=== PATIENT | female | born 1970 | race Caucasian/White ===

== ENCOUNTER 2017-01-18 12:55 | Emergency (ER) | payer SELFPAY ==
[2017-01-18 14:29] VITALS: BP 120/73
--- NOTE | 2017-01-18 14:55 | UC ---
Hand/Wrist HPI - HPI Summary HPI Summary: 46 female presents with complaints left hand injury and pain after taking a seal to a bucket off when it slipped forcing her hand to fly back and hit the wall. Patient states this occurred while at work this morning and since has been causing her pain. Has not taken any medication besides her daily medication , prednisone that she takes for tendonitis. Patient denies numbness/tingling, limited ROM and any other injuries. Pain is described as throbbing and aching. Admits to ecchymosis and edema. No lacerations or open wounds. - History Of Current Complaint Chief Complaint: UCUpperExtremity Stated Complaint: LEFT HAND INJURY W/C Time Seen by Provider: 01/18/17 14:55 Hx Obtained From: Patient Hx Last Menstrual Period: 01/18/17 ?: No Onset/Duration: Sudden Onset, Lasting Hours, Worse Since Severity Initially: Mild Severity Currently: Moderate Pain Intensity: 3 Pain Scale Used: 0-10 Numeric Character Of Pain: Aching, Throbbing Aggravating Factor(s): Movement, Other - touching Alleviating: Rest Associated Signs And Symptoms: Positive: Swelling, Bruising Related History: Occupational Injury, Dominant Hand Right - Allergies/Home Medications Allergies/Adverse Reactions: Allergies Allergy/AdvReac Type Severity Reaction Status Date / Time No Known Allergies Allergy Verified 01/18/17 14:22 Home Medications: Home Medications Naproxen Sodium [Naproxen Sodium 220 mg] 220 mg PO BID PRN 01/18/17 [History Confirmed 01/18/17] predniSONE TAB* [Deltasone TAB*] 5 mg PO DAILY 01/18/17 [History Confirmed 01/18] PMH/Surg Hx/FS Hx/Imm Hx Endocrine History Of: Denies: Diabetes Cardiovascular History Of: Denies: Hypertension - Surgical History Surgical History: Yes Surgery Procedure, Year, and Place: tubal - Family History Known Family History: Positive: None - Social History Alcohol Use: Rare Substance Use Type: None Smoking Status (MU): Heavy Every Day Tobacco Smoker Type: Cigarettes Amount Used/How Often: 1/2 ppd Length of Time of Smoking/Using Tobacco: 25 yrs Have You Smoked in the Last Year: Yes - Immunization History Vaccination Up to Date: Yes Review of Systems Constitutional: Negative Skin: Bruising, Other - swelling ENT: Negative Respiratory: Negative Cardiovascular: Negative Gastrointestinal: Negative Motor: Negative Neurovascular: Negative Musculoskeletal: Arthralgia, Edema - left medial hand, Myalgia Neurological: Negative All Other Systems Reviewed And Are Negative: Yes Physical Exam Triage Information Reviewed: Yes Appearance: Well-Appearing - sitting reading magazine, No Pain Distress, Well- Nourished Vital Signs: Initial Vital Signs Temp 98.7 F 01/18/17 14:24 Pulse 60 01/18/17 14:24 Resp 16 01/18/17 14:24 BP 120/73 01/18/17 14:24 Pulse Ox 100 01/18/17 14:24 Vital Signs Reviewed: Yes Eyes: Positive: Conjunctiva Clear ENT: Positive: Normal ENT inspection, Hearing grossly normal Neck: Positive: Supple, Nontender Respiratory: Positive: Chest non-tender, Lungs clear, Normal breath sounds Cardiovascular: Positive: RRR, No Murmur, Pulses Normal - 2+ radial b/l, Brisk Capillary Refill - <2 Musculoskeletal: Positive: Strength 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 ecchymosis, mild at same area. very tender on palpation. no step- off, crepitus or obvious deformity noted., Other: Neurological: Positive: Alert - sensation intact 5/5, Muscle Tone Normal Skin Exam: Normal Skin: Positive: Other - minimal ecchymosis and edema at ulnar side of left hand under Diagnostics - Radiology left hand Xray Interpretation: No Acute Changes - normal left hand image. if symptoms persist recommend repeat imaging. Radiology Interpretation Completed By: Radiologist Hand/Wrist Course/Dx - Course Course Of Treatment: given naproxen in office. x-ray of left hand obtained and negative. patient denied brace at this time as she has them at home if she feels the need. continue naproxen and ice multiple times daily. rest. refrain from strenuous physical activity. follow up with pcp. if symptoms worsen or persist return. - Differential Dx/Diagnosis Differential Diagnosis/HQI/PQRI: Contusion, Dislocation, Fracture, Sprain, Strain, Other Provider Diagnoses: contusion left hand, left hand sprain Discharge - Discharge Plan Condition: Stable Disposition: HOME Patient Education Materials: Contusion in Adults (ED), Hand Sprain (ED) Referrals: Shey Ronquillo NP [Primary Care Provider] - Additional Instructions: Take naproxen daily for the next 5-7 days to help with pain and inflammation. Rest your hand and use brace as needed to refrain from hitting your hand. Ice hand multiple times a day 20 minutes on and 20 minutes off. Follow up with your PCP. If your symptoms persist or worsen please return.
[2017-01-18] MEDS ORDERED: Naproxen TAB* 375 MG PO ONE (15:00)
[2017-01-18] MEDS ORDERED: Naproxen TAB* 250 MG PO ONE (15:07)
--- NOTE | 2017-01-18 15:59 | RAD ---
INDICATION: Hand pain after traumatic injury. COMPARISON: None. TECHNIQUE: 4 views of the left hand were obtained. FINDINGS: The adequately corticated bones are in normal alignment. No significant focal osseous abnormality or fracture is seen. Joint spaces appear maintained. IMPRESSION: Normal left hand radiograph. If the patient's symptoms persist, follow-up imaging is recommended.
== END 2017-01-18 16:18 | disposition home or self-care (01) ==
LOC: UCCORT 12:55
DX: S60.222A Contusion of left hand, initial encounter (principal); W22.09XA Striking against other stationary object, initial encounter; Y93.9 Activity, unspecified; Y99.9 Unspecified external cause status; S63.92XA Sprain of unspecified part of left wrist and hand, initial encounter; F17.210 Nicotine dependence, cigarettes, uncomplicated
CPT/HCPCS: 99212; A9270-GY; G0463